=== PATIENT | male | born 1990 | race Caucasian/White ===

== ENCOUNTER 2019-09-19 18:44 | Emergency (ER) | payer OTHER ==
[2019-09-19 20:24] LABS: Absolute Lymphocytes (CBC) 1.7 K/uL (0.7-4.9); Basophils % 0.6 % (0-1.3); Hematocrit 46.6 % (39.6-49.0); Lymphocytes % 18.9 % (15.3-44.8); MPV 8.6 fL (7.6-11.3); RBC Red Blood Cell Count 5.63 M/uL (4.33-5.43)
[2019-09-19 20:51] LABS: BUN Blood Urea Nitrogen 13 mg/dL (7-18); Bicarbonate 26 mmol/L (21-32); Glucose Level 104 mg/dL (74-106); Magnesium 2.4 mg/dL (1.8-2.4); Potassium 3.9 mmol/L (3.5-5.1); Sodium Level 138 mmol/L (136-145); Troponin (Emerg Dept Use Only) < 0.02 ng/mL (0.0-0.045)
[2019-09-19 20:56] LABS: NT PRO-BNP < 5 pg/mL (<125)
[2019-09-19] MEDS ORDERED: NA CHLORIDE 0.9% 1,000 ML ONE (20:58)
--- NOTE | 2019-09-19 21:04 | RAD REPORT ---
EXAM DESCRIPTION: RAD - Chest Single View - 09/19/2019 8:38 pm CLINICAL HISTORY: Chest pain;Palpitations COMPARISON: Two view chest May 2009 TECHNIQUE: AP portable chest image was obtained 09/19/2019 8:38 pm . FINDINGS: No peripheral mass or consolidation. Fullness of the left suprahilar region matches the 20 10 study. No failure or volume overload. Heart and vasculature are normal. No measurable pleural effusion and no pneumothorax. No acute bone finding. Scoliosis present. No acute aortic findings suspected. IMPRESSION: No acute cardiopulmonary process.
[2019-09-19 21:05] LABS: Blood Morphology Comment NOT SEEN (NOT SEEN); Platelet Estimate ADEQ; Urine White Blood Cell Casts OK
--- NOTE | 2019-09-19 21:27 | RAD REPORT ---
EXAM DESCRIPTION: CT - Chest For Pe Angio - 09/19/2019 9:15 pm CLINICAL HISTORY: Chest pain;Dyspnea COMPARISON: Chest Single View dated 09/19/2019 TECHNIQUE: Dynamically enhanced 3 mm thick images of the chest were obtained during administration o f approximately 150mL Isovue 370 IV contrast. Coronal and oblique MIP reconstruction images were gene rated and reviewed. Exam utilizes a protocol to evaluate the pulmonary arterial tree. All CT scans are performed using dose optimization technique as appropriate and may include automated exposure control or mA/KV adjustment according to patient size. FINDINGS: No pulmonary emboli are identified. Far peripheral branch assessment is limited somewhat b y motion. Pulmonary emboli are not suspected. The aorta as imaged shows no acute or suspicious finding. No pericardial thickening or effusion. No mass or consolidation. Minimal interstitial edema or infiltrate in the left base cannot be exclude d. Motion accentuates interstitial pattern and creates some mild component of ground-glass opacificat ion. No pleural effusion or pleural thickening. No mediastinal or hilar suspicious masses. No chest wall masses or abnormal axillary lymphadenopathy. Limited upper abdomen imaging shows fatty infiltration of a partially imaged liver. IMPRESSION: No pulmonary emboli identified. No mass or consolidation.Motion accentuates left base lung findings potentially masking minimal edema or infiltrate.
--- NOTE | 2019-09-19 22:28 | EDPHYS ---
Physician Documentation [facility] Name: Manuel Rand Age: 28 yrs Sex: Male : 1990 Arrival Date: 09/19/2019 Time: 18:47 Bed 15 Private MD: ED Physician Quentin Hunter HPI: 09/18 20:39 This 28 yrs old Male presents to ER via Ambulatory with complaints of Chest rn Pain, Dizziness, Shortness Of Breath, Elevated Heart Rate. 20:39 The patient or guardian reports chest pain that is located primarily in the substernal rn area. The pain radiates to the left arm. Associated signs and symptoms: Pertinent positives: lightheadedness, shortness of breath, Pertinent negatives: diaphoresis, headache, vomiting. The chest pain is described as aching. Duration: The patient or guardian reports multiple episodes, that are intermittent. Modifying factors: The symptoms are alleviated by nothing. the symptoms are aggravated by deep breath. Severity of pain: At its worst the pain was mild in the emergency department the pain is unchanged. The patient has not experienced similar symptoms in the past. Reports chest pain, palpitations, lightheaded, began around noon, has been told has mitral valve prolapse but no problems or need for intervention since high school. Reports daily Adderall and energy drink/coffee. Today felt palpitations and mild chest pain that occurs with deep breath. No trauma. No infectious symptoms recently, no COVID exposure but is [employer]. . Historical: - Allergies: 19:17 Codeine; ca1 19:17 tramadol; ca1 - Home Meds: 19:17 Adderall XR Oral [Active]; ca1 - PMHx: 19:17 ADD/ADHD; prolapse Mitral Valve; ca1 - PSHx: 19:17 skin cancer removal; Skin Graft; ca1 - Immunization history:: Adult Immunizations up to date. - Social history:: Smoking status: Patient denies any tobacco usage or history of. - Family history:: not pertinent. - Hospitalizations: : No recent hospitalization is reported. ROS: 20:39 Constitutional: Negative for fever, chills, and weight loss, Eyes: Negative for injury, rn pain, redness, and discharge, Neck: Negative for injury, pain, and swelling, Cardiovascular: Negative for edema, Respiratory: Negative for cough, wheezing Abdomen/GI: Negative for abdominal pain, nausea, vomiting, diarrhea, and constipation, MS/Extremity: Negative for injury and deformity, Skin: Negative for injury, rash, and discoloration, Neuro: Negative for headache, weakness, numbness, tingling, and seizure. Exam: 20:39 Constitutional: This is a well developed, well nourished patient who is awake, alert, rn seems anxious Head/Face: Normocephalic, atraumatic. ENT: No stridor Cardiovascular: Tachycardic, regular Respiratory: Mild tachypnea, no retractions, speaking full sentences. Abdomen/GI: soft, non-tender MS/ Extremity: Pulses equal, no cyanosis. Neurovascular intact. Full, normal range of motion. Equal circumference. Neuro: Awake and alert, GCS 15, oriented to person, place, time, and situation. Cranial nerves II-XII grossly intact. Motor strength 5/5 in all extremities. Sensory grossly intact. Cerebellar exam normal. 22:24 ECG was reviewed by the Attending Physician. rn Vital Signs: 19:14 BP 139 / 109; Pulse 112; Resp 18 S; Temp 97(TE); Pulse Ox 98% on R/A; Weight 82.55 kg ca1 (R); Height 5 ft. 11 in. (180.34 cm) (R); 20:00 BP 141 / 71; Pulse 110; Resp 16; Pulse Ox 97% ; Pain 4/10; mt2 21:00 BP 151 / 91; Pulse 108; Resp 16; Pulse Ox 99% ; Pain 4/10; mt2 22:03 BP 150 / 98; Pulse 106; Resp 16; Pulse Ox 97% ; Pain 4/10; mt2 22:44 BP 149 / 91; Pulse 97; Resp 16; Pulse Ox 97% on R/A; Pain 0/10; mt2 19:14 Body Mass Index 25.38 (82.55 kg, 180.34 cm) ca1 MDM: 19:18 Patient medically screened. rn 22:24 Differential diagnosis: acute pericarditis, chest wall pain, costochondritis, rn esophagitis, gastroesophageal reflux disease (GERD), pleurisy, pneumonia, pneumothorax, pulmonary embolus, MVP, stimulant effect, anxiety, viral syndrome. Data reviewed: vital signs, nurses notes, lab test result(s), EKG, radiologic studies, CT scan, and as a result, I will discharge patient. Counseling: I had a detailed discussion with the patient and/or guardian regarding: the historical points, exam findings, and any diagnostic results supporting the discharge/admit diagnosis, lab results, radiology results, the need for outpatient follow up, to return to the emergency department if symptoms worsen or persist or if there are any questions or concerns that arise at home. Response to treatment: the patient's symptoms have markedly improved after treatment, and as a result, I will discharge patient. Special discussion: I discussed with the patient/guardian in detail that at this point there is no indication for admission to the hospital. It is understood, however, that if the symptoms persist or worsen the patient needs to return immediately for re-evaluation. Further emergent ED testing is not indicated at this point in time. I discussed with the patient/guardian in detail the need to arrange with the PCP or specialist further outpatient testing, ECHO. Based on the history and exam findings, there is no indication for further emergent testing or inpatient evaluation. I discussed with the patient/guardian the need to see the finance intern for further evaluation of the symptoms. ED course: Pt feels better, vitals improved, when talking to patient, HR down < 100, no oxygen requirement. Neg trop/ct chest/thyroid studies. Sinus rhythm on monitor entire time. Recommend cessation of stimulants, and cardiology f/u for outpt ECHO, return precautions given and understood.. 09/18 19:58 Order name: Basic Metabolic Panel; Complete Time: 21:09/18 19:58 Order name: CBC with Diff; Complete Time: :09/18 19:58 Order name: Magnesium; Complete Time: :09/18 19:58 Order name: NT PRO-BNP; Complete Time: :09/18 19:58 Order name: Troponin (emerg Dept Use Only); Complete Time: :09/18 19:58 Order name: TSH; Complete Time: :09/18 19:58 Order name: XRAY Chest (1 view); Complete Time: 21:09/18 19:58 Order name: EKG; Complete Time: 19:58 09/18 19:58 Order name: Cardiac monitoring; Complete Time: 20:04 09/18 19:58 Order name: EKG - Nurse/Tech; Complete Time: 20: 09/18 19:58 Order name: CT Chest For PE Angio; Complete Time: : rn 09/18 19:58 Order name: T4 Free; Complete Time: : 09/18 21:05 Order name: CBC Smear Scan; Complete Time: : [facility] 09/18 19:58 Order name: IV Saline Lock; Complete Time: 20: 09/18 19:58 Order name: Labs collected and sent; Complete Time: 20: 09/18 19:58 Order name: O2 Per Protocol; Complete Time: 21: 09/18 19:58 Order name: O2 Sat Monitoring; Complete Time: 20: rn EC:24 Rate is 105 beats/min. Rhythm is regular. QRS [place] is Normal. ID interval is normal. rn QRS interval is normal. QT interval is normal. No Q waves. T waves are Normal. No ST changes noted. Clinical impression: Sinus tachycardia. Interpreted by me. Reviewed by me. Administered Medications: 20:10 Drug: NS 0.9% 1000 ml Route: IV; Rate: 1000 ml; Site: left antecubital; mt2 22:45 Follow up: Response: No adverse reaction; IV Status: Completed infusion; IV Intake: mt2 1000ml Disposition: 09/19/19 22:27 Discharged to Home. Impression: Palpitations. - Condition is Stable. - Discharge Instructions: Palpitations. - Medication Reconciliation Form, Thank You Letter, Antibiotic Education, Prescription Opioid Use form. - Follow up: Private Physician; When: As needed; Reason: Recheck today's complaints, Re-evaluation by your physician. - Problem is new. - Symptoms have improved. Signatures: Dispatcher [employer] [facility] Quentin Hunter MD MD rn Acob, Cheryl RN RN ca1 Riri Newton RN RN mt2 Corrections: (The following items were deleted from the chart) 22:52 22:27 09/19/2019 22:27 Discharged to Home. Impression: Palpitations. Condition is mt2 Stable. Forms are Medication Reconciliation Form, Thank You Letter, Antibiotic Education, Prescription Opioid Use. Follow up: Private Physician; When: As needed; Reason: Recheck today's complaints, Re-evaluation by your physician. Problem is new. Symptoms have improved. rn
--- NOTE | 2019-09-19 22:28 | ER ---
Nurse's Notes [facility] Name: Manuel Rand Age: 28 yrs Sex: Male : 1990 Arrival Date: 09/19/2019 Time: 18:47 Bed 15 Private MD: Diagnosis: Palpitations Presentation: 09/18 19:14 Chief complaint: Patient states: Chest pain started started at around noon, radiating ca1 to the L arm. Dizziness and SOB with with chest pain. Coronavirus screen: Patient denies a cough. Patient denies shortness of breath or difficulty breathing. Patient denies measured and/or subjective temperature greater than 100.4F prior to today's visit. Patient denies travel on a cruise ship or to a country the [facility] currently lists as an affected area. Patient denies contact with known and/or suspected case of COVID-19. Proceed with normal triage. Ebola Screen: Patient negative for fever greater than or equal to 101.5 degrees Fahrenheit, and additional compatible Ebola Virus Disease symptoms Patient denies exposure to infectious person. Patient denies travel to an Ebola-affected area in the 21 days before illness onset. No symptoms or risks identified at this time. Initial Sepsis Screen: Does the patient meet any 2 criteria? No. Patient's initial sepsis screen is negative. Does the patient have a suspected source of infection? No. Patient's initial sepsis screen is negative. Risk Assessment: Do you want to hurt yourself or someone else? Patient reports no desire to harm self or others. Onset of symptoms was September 19, 2019. 19:14 Acuity: RITA 3 ca1 19:14 Method Of Arrival: Ambulatory ca1 Historical: - Allergies: 19:17 Codeine; ca1 19:17 tramadol; ca1 - Home Meds: 19:17 Adderall XR Oral [Active]; ca1 - PMHx: 19:17 ADD/ADHD; prolapse Mitral Valve; ca1 - PSHx: 19:17 skin cancer removal; Skin Graft; ca1 - Immunization history:: Adult Immunizations up to date. - Social history:: Smoking status: Patient denies any tobacco usage or history of. - Family history:: not pertinent. - Hospitalizations: : No recent hospitalization is reported. Screenin:07 Abuse screen: Denies threats or abuse. Nutritional screening: No deficits noted. mt2 Tuberculosis screening: No symptoms or risk factors identified. Fall Risk None identified. Assessment: 19:51 Reassessment: Patient and/or family updated on plan of care and expected duration. Pain mt2 level reassessed. Patient is alert, oriented x 3, equal unlabored respirations, skin warm/dry/pink. General: Appears in no apparent distress. Behavior is cooperative. Pain: Complains of pain in left breast Pain does not radiate. Pain currently is 6 out of 10 on a pain scale. Pain began gradually, 4 hours ago. Neuro: No deficits noted. Cardiovascular: Reports chest pain. Respiratory: Reports shortness of breath WITH CP. GI: No deficits noted. : No deficits noted. EENT: No deficits noted. 21:00 Reassessment: Patient and/or family updated on plan of care and expected duration. Pain mt2 level reassessed. Patient is alert, oriented x 3, equal unlabored respirations, skin warm/dry/pink. General: Appears uncomfortable, Behavior is cooperative. Pain: Complains of pain in anterior aspect of left upper chest Pain currently is 4 out of 10 on a pain scale. Quality of pain is described as aching. 22:04 Reassessment: Patient and/or family updated on plan of care and expected duration. Pain mt2 level reassessed. Patient is alert, oriented x 3, equal unlabored respirations, skin warm/dry/pink. General: Appears comfortable, Behavior is cooperative. 22:44 Reassessment: Patient and/or family updated on plan of care and expected duration. Pain mt2 level reassessed. Patient is alert, oriented x 3, equal unlabored respirations, skin warm/dry/pink. Patient denies pain at this time. General: Appears comfortable, Behavior is cooperative. Vital Signs: 19:14 BP 139 / 109; Pulse 112; Resp 18 S; Temp 97(TE); Pulse Ox 98% on R/A; Weight 82.55 kg ca1 (R); Height 5 ft. 11 in. (180.34 cm) (R); 20:00 BP 141 / 71; Pulse 110; Resp 16; Pulse Ox 97% ; Pain 4/10; mt2 21:00 BP 151 / 91; Pulse 108; Resp 16; Pulse Ox 99% ; Pain 4/10; mt2 22:03 BP 150 / 98; Pulse 106; Resp 16; Pulse Ox 97% ; Pain 4/10; mt2 22:44 BP 149 / 91; Pulse 97; Resp 16; Pulse Ox 97% on R/A; Pain 0/10; mt2 19:14 Body Mass Index 25.38 (82.55 kg, 180.34 cm) ca1 ED Course: 18:47 Patient arrived in ED. ag5 19:16 Triage completed. ca1 19:17 Arm band placed on right wrist. ca1 19:18 Quentin Hunter MD is Attending Physician. rn 19:27 Riri Newton RN is Primary Nurse. mt2 20:07 Patient has correct armband on for positive identification. Placed in gown. Bed in low mt2 position. Call light in reach. Side rails up X 1. monitoring manager on. Pulse ox on. 20:07 Initial lab(s) drawn, by me, sent to lab. Inserted saline lock: 18 gauge in left mt2 antecubital area, using aseptic technique. Blood collected. Patient maintains SpO2 saturation greater than 95% on room air. 20:38 XRAY Chest (1 view) In Process Unspecified. EDMS 21:14 CT Chest For PE Angio In Process Unspecified. EDMS 22:44 No provider procedures requiring assistance completed. IV discontinued, intact, mt2 bleeding controlled, No redness/swelling at site. Pressure dressing applied. Administered Medications: 20:10 Drug: NS 0.9% 1000 ml Route: IV; Rate: 1000 ml; Site: left antecubital; mt2 22:45 Follow up: Response: No adverse reaction; IV Status: Completed infusion; IV Intake: mt2 1000ml Intake: 22:45 IV: 1000ml; Total: 1000ml. mt2 Outcome: 22:27 Discharge ordered by . rn 22:44 Discharged to home ambulatory. mt2 22:44 Condition: good 22:44 Discharge instructions given to patient, Instructed on discharge instructions, follow up and referral plans. Demonstrated understanding of instructions, follow-up care. 22:52 Patient left the ED. mt2 Signatures: Dispatcher [employer] EDMS Quentin Hunter MD MD rn Acob, Cheryl, RN RN ca1 Geni Ayala ag5 Riri Newton RN RN mt2
[2019-09-19 23:05] VITALS: TEMP 97
[2019-09-19 23:13] VITALS: O2SAT 97
[2019-09-19 23:15] VITALS: BP 149/91
--- NOTE | 2019-09-20 07:33 | EKG ---
Test Date: 2019-09-19 Test Time: 19:35:35 Management Recruiter: SILVERIO MEASUREMENT RESULTS: Intervals: Rate: 105 RI: 124 QRSD: 94 QT: 320 QTc: 422 [place]: P: 51 RI: 124 QRS: 85 T: -20 INTERPRETIVE STATEMENTS: Sinus tachycardia Nonspecific T wave abnormality Abnormal ECG No previous ECG available for comparison Electronically Signed On 09-20-19 07:32:20 CDT by Sotero Ba
== END 2019-09-19 22:52 | disposition home or self-care (01) ==
LOC: ER 18:44
DX: R00.2 Palpitations (principal); I34.1 Nonrheumatic mitral (valve) prolapse; F90.9 Attention-deficit hyperactivity disorder, unspecified type; Z88.5 Allergy status to narcotic agent
CPT/HCPCS: 96361; 93005; 85025; 80048; 36415; 83735; 84443; 84484; 84439; 83880; 71275; 71045; 96360; 99285; Q9967; J7030